=== PATIENT | female | born 1965 | race American Indian/Alaskan Native ===

== ENCOUNTER 2019-09-21 14:43 | Emergency (ER) | payer OTHER ==
[2019-09-21] MEDS ORDERED: IPRATROPIUM/ALBUTEROL SULFATE 3 ML AMPUL.NEB IH ONE (14:52)
--- NOTE | 2019-09-21 14:52 | Emergency Department Report ---
Blank Doc - Documentation Documentation: 54-year-old female that presents with URI and wheezing. This initial assessment/diagnostic orders/clinical plan/treatment(s) is/are subject to change based on patient's health status, clinical progression and re- assessment by fellow clinical providers in the ED. Further treatment and workup at subsequent clinical providers discretion. Patient/guardians urged not to elope from the ED as their condition may be serious if not clinically assessed and managed. Initial orders include: 1- Patient sent to [facility] for further evaluation and treatment 2- breathing treatment 3- cXR
--- NOTE | 2019-09-21 15:24 | XRay Report ---
CHEST 2 VIEWS INDICATION / CLINICAL INFORMATION: wheezing with cough. COMPARISON: None available. FINDINGS: SUPPORT DEVICES: None. HEART / MEDIASTINUM: No significant abnormality. LUNGS / PLEURA: No significant pulmonary or pleural abnormality. No pneumothorax. ADDITIONAL FINDINGS: No significant additional findings. IMPRESSION: 1. No acute findings. Signer Name: Luis Antonio Pathak MD Signed: 09/21/2019 3:20 PM Workstation Name: [id number]
[2019-09-21 16:16] LABS: Basophils # (Auto) 0.1 K/mm3 (0.0-0.1); Basophils % (Auto) 1.2 % (0.0-1.8); Eosinophils # (Auto) 0.4 K/mm3 (0.0-0.4); Eosinophils % (Auto) 5.4 % (0.0-4.3); Hematocrit 42.8 % (30.3-42.9); Hemoglobin 14.3 gm/dl (10.1-14.3); Lymphocytes # (Auto) 2.4 K/mm3 (1.2-5.4); Lymphocytes % (Auto) 36.8 % (13.4-35.0); Mean Corpuscular HGB Conc 33 % (30-34); Mean Corpuscular Volume 83 fl (79-97); Monocytes # (Auto) 0.8 K/mm3 (0.0-0.8); Monocytes % (Auto) 11.9 % (0.0-7.3); Platelet Count 394 K/mm3 (140-440); Red Blood Count 5.17 M/mm3 (3.65-5.03); Red Cell Distribution Width 13.5 % (13.2-15.2)
[2019-09-21 16:31] LABS: BUN/Creatinine Ratio 18; Blood Urea Nitrogen 16 mg/dL (7-17); Calcium 9.8 mg/dL (8.4-10.2); Hemolysis Index 67
[2019-09-21] MEDS ORDERED: INSULIN REGULAR, HUMAN 100 UNITS/1 ML IV ONE (16:41)
[2019-09-21] MEDS ORDERED: ALBUTEROL 2.5 MG/3 ML NEBU IH ONE (17:09)
[2019-09-21] MEDS ORDERED: BENZONATATE 100 MG CAP PO ONE (17:09)
[2019-09-21] MEDS ORDERED: SODIUM CHLORIDE 0.9% 1000 ML 1,000 ML IV ONE (17:15)
--- NOTE | 2019-09-21 17:37 | Emergency Department Report ---
HPI - General Chief Complaint: Upper Respiratory Infection Time Seen by Provider: 09/21/19 14:51 - HPI HPI: 54-year-old Fanny female presents to the emergency department with complaint of a few days of some wheezing and a mixed dry and productive cough. The cough sometimes will occur with coughing fits to the point where is causing her to have some chest wall and rib pain. She has a past medical history of hypertension and non-insulin dependent diabetes. The patient recently moved here from [place] and therefore does not have a local primary care physician. She also has been out of her medications. She says that she does have a refill of her metformin and her glipizide but she has not had them in about 1 month. She is also out of her losartan. She denies any tobacco or illicit drug use. She has not taken anything for her symptoms prior to presentation. ED Past Medical Hx - Past Medical History Hx Hypertension: Yes Hx Dementia: Yes - Social History Smoking Status: Never Smoker Substance Use Type: None - Medications Home Medications: Home Medications Medication Instructions Recorded Confirmed Last Taken Type ALBUTEROL Inhaler (OR & NICU) 2 puff IH QID PRN #1 inh 09/21/19 Unknown Rx [ProAir HFA Inhaler] Benzonatate [Tessalon Perles] 100 mg PO Q8HR PRN #20 capsule 09/21/19 Unknown Rx Losartan [Cozaar] 100 mg PO QDAY #30 tablet 09/21/19 Unknown Rx ED Review of Systems ROS: Stated complaint: SOB/WHEEZING Other details as noted in HPI Comment: All other systems reviewed and negative Constitutional: denies: chills, fever Eyes: denies: eye pain, vision change ENT: denies: ear pain, throat pain Respiratory: cough, wheezing Cardiovascular: denies: palpitations, edema Gastrointestinal: denies: abdominal pain, vomiting Genitourinary: denies: dysuria, discharge Musculoskeletal: denies: back pain, arthralgia Skin: denies: rash, lesions Neurological: denies: headache, weakness Physical Exam - Physical Exam Vital Signs: Vital Signs 09/21/19 15:37 Respiratory 22 Rate Physical Exam: GENERAL: The patient is well-developed well-nourished. HENT: Normocephalic. Atraumatic. Patient has moist mucous membranes. Oropharynx is clear. EYES: Extraocular motions are intact. Pupils equal reactive to light bilaterally. NECK: Supple. Trachea is midline. CHEST/LUNGS: Mild wheezing throughout the chest. Patient has a dry cough that occurs with coughing fits. No tachypnea or accessory muscle use. There is no respiratory distress noted. HEART/CARDIOVASCULAR: Regular. There is no tachycardia. There is no murmur. ABDOMEN: Abdomen is soft, nontender. Patient has normal bowel sounds. There is no abdominal distention. SKIN: Skin is warm and dry. NEURO: The patient is awake, alert, and oriented. The patient is cooperative. The patient has no focal neurologic deficits. Normal speech. MUSCULOSKELETAL: There is no tenderness or deformity. There is no evidence of acute injury. ED Course Vital Signs 09/21/19 15:37 Respiratory 22 Rate ED Medical Decision Making - Lab Data Result diagrams: 09/21/19 16:05 09/21/19 16:05 - Radiology Data Radiology results: image reviewed interpreted by me: Chest x-ray does not show any acute process. There are no pleural effusions, obvious pneumonia and there is no pneumothorax. - Medical Decision Making This patient presents with some upper respiratory complaints that appear consistent with bronchitis. She has some mild wheezing and a bronchospastic cough but does not appear in any respiratory distress. Chest x-ray does not show any pneumonia, pleural effusions, or any other acute process. The patient has a history of [id number] diabetes and hypertension with some recent medication noncompliance. Therefore, before getting steroids, the patient was given an Accu-Chek that came back showing hyperglycemia about 360. For this reason I obtained some blood work which came back showing a serum glucose of about 400. No signs of diabetic ketoacidosis. She was given IV insulin and her blood sugar came down into the 200s. Patient's blood pressure was elevated but was at a reasonable level without any antihypertensive medication given. The rest of the labs were unremarkable. She was given 2 different breathing treatments with some improvement, as well as Tessalon Perles for her cough. The patient has prescriptions for her metformin and glipizide. I am giving her a prescription for her losartan. She will also get a perception for albuterol inhaler and Robitussin-AC. The patient is going to work on getting a primary care referral through her insurance company to make sure that it is covered. She will return to the ER with any worsening of her symptoms or any acute distress. - Differential Diagnosis asthma, pneumonia, bronchitis, DKA Critical Care Time: No Critical care attestation.: If time is entered above; I have spent that time in minutes in the direct care of this critically ill patient, excluding procedure time. ED Disposition Clinical Impression: Bronchitis Hyperglycemia due to type 2 diabetes mellitus Qualifiers: Diabetes mellitus patient intake representative insulin use: without shelter use Qualified Code(s): E11.65 - Type 2 diabetes mellitus with hyperglycemia Hypertension Qualifiers: Hypertension type: essential hypertension Qualified Code(s): I10 - Essential (primary) hypertension Disposition: DC- TO HOME OR SELFCARE Is pt being admited?: No Condition: Stable Instructions: Diabetes Mellitus Type 2 in Adults (ED), Acute Bronchitis (ED), Hypertension (ED), Diabetic Hyperglycemia (ED) Additional Instructions: Please follow-up with a primary care physician as soon as you're able to do so. Please fill and start taking your metformin and glipizide. Try to stay away from foods that are high in sugar, carbohydrates, starches to help with your diabetes. Keep a blood sugar log. Try and stay away from foods that are high in salt and caffeinated products to help with your blood pressure. Keep a blood pressure log. Return to the emergency Department with any worsening of your symptoms or any acute distress. You have been prescribed a medication that is sedating and therefore should not be taken prior to driving, working, and responsible for children and in no way should be mixed with alcohol of any quantity. Prescriptions: Losartan [Cozaar] 100 mg PO QDAY #30 tablet ALBUTEROL Inhaler (OR & NICU) [ProAir HFA Inhaler] 2 puff IH QID PRN #1 inh PRN Reason: Shortness Of Breath Benzonatate [Tessalon Perles] 100 mg PO Q8HR PRN #20 capsule PRN Reason: Cough Referrals: PRIMARY CARE, [Primary Care Provider] - 3-5 Days Forms: Work/School Release Form(ED) Time of Disposition: 17:46
[2019-09-21 19:21] VITALS: BP 139/82
== END 2019-09-21 19:13 | disposition home or self-care (01) ==
LOC: ED 14:43
DX: J40 Bronchitis, not specified as acute or chronic (principal); E11.65 Type 2 diabetes mellitus with hyperglycemia; J06.9 Acute upper respiratory infection, unspecified; I10 Essential (primary) hypertension; Z88.8 Allergy status to other drugs, medicaments and biological substances; Z79.899 Other long term (current) drug therapy
CPT/HCPCS: 36415; 71046; 80048; 82805; 82962; 85025; 94640; 96361; 96374; 99285; J7030; J1815